=== PATIENT | male | born 1980 | race Caucasian/White ===

== ENCOUNTER 2017-02-07 21:27 | Emergency (ER) | payer SELFPAY ==
[~2017-02-07] VITALS: Ht 180.3 cm; Wt 65.9 kg
[2017-02-07 21:40] VITALS: BP 90/66; PULSE 80; RESP 20; TEMP 98.5; O2SAT 98
[2017-02-07] MEDS ORDERED: BACT800T5 PO ×2 (22:27→22:46)
--- NOTE | 2017-02-07 22:27 | PD ---
HPI Chief Complaint: Skin Problem Time Seen by Provider: 22:00 Travel History International Travel<30 days: No Contact w/Intl Traveler<30days: No Traveled to known affect area: No History of Present Illness HPI 36-year-old male presents emergency department for evaluation of a painful lump on his back 3 days. He denies fever or chills. He reports pain is localized to the site of the lump. Nonradiating. No aggravating or alleviating factors. Patient denies history of previous abscesses. PFSH Past Medical History Medical History: Denies Significant Hx Diminished Hearing: No Immunizations Current: Yes Tetanus Vaccination: Unknown Influenza Vaccination: No Social History Alcohol Use: Yes (social) Tobacco Use: Yes (1/2 PPD) Substance Use: No Allergies-Medications (Allergen,Severity, Reaction): Coded Allergies: No Known Allergies (Unverified , 02/07/17) Reported Meds & Prescriptions Reported Meds & Active Scripts Active Bactrim DS (Sulfamethoxazole-Trimethoprim) 800-160 Mg Tab 1 Tab PO BID Review of Systems Except as stated in HPI: all other systems reviewed are Neg General / Constitutional: No: Fever Eyes: No: Visual changes Cardiovascular: No: Chest Pain or Discomfort Respiratory: No: Shortness of Breath Gastrointestinal: No: Abdominal Pain Genitourinary: No: Dysuria Musculoskeletal: No: Pain Physical Exam Narrative GENERAL: Well-nourished, well-developed patient. SKIN: Focused skin assessment warm/dry. Patient has a one and half centimeter diameter raised fluctuant abscess to the mid back. There is no surrounding cellulitis. HEAD: Normocephalic. EYES: No scleral icterus. No injection or drainage. NECK: Supple, trachea midline. No JVD or lymphadenopathy. CARDIOVASCULAR: Regular rate and rhythm without murmurs, gallops, or rubs. RESPIRATORY: Breath sounds equal bilaterally. No accessory muscle use. GASTROINTESTINAL: Abdomen soft, non-tender, nondistended. MUSCULOSKELETAL: No cyanosis, or edema. BACK: Nontender without obvious deformity. No CVA tenderness. Data Data Last Documented VS Vital Signs Date Time Temp Pulse Resp B/P Pulse Ox O2 Delivery O2 Flow Rate FiO2 02/07/17 21:40 98.5 80 20 90/66 98 Orders Lidocai-Epi 1%-1:100,000 Inj (Xylocaine- (02/07/17 22:45) Lidocai-Epi 1%-1:100,000 Inj (Xylocaine- (02/07/17 23:00) MDM Medical Decision Making Medical Screen Exam Complete: Yes Emergency Medical Condition: Yes Differential Diagnosis Abscess, sebaceous cyst, cellulitis, inflamed sebaceous cyst Narrative Course 36-year-old male presents emergency department for evaluation of possible abscess on his back 3 days. On exam patient has a 1-1/2 cm raised fluctuant abscess to the mid back. There is no surrounding cellulitis. I&D will be performed and patient will be discharged home on antibiotics. Procedures Procedure Narrative Incision and drainage of abscess performed by medical student with my supervision: The area was prepped with Betadine. Sterile dressings applied. 1-2 cc of 1% lidocaine with epi used to anesthetize the area. #11 blade used to make a small incision. Small amount of purulent drainage expressed. Sterile dressing was applied. Patient tolerated procedure well. Diagnosis Primary Impression: Abscess Referrals: Primary Care Physician Additional Instructions: Take the antibiotics as prescribed. Change the dressing daily. Follow-up the primary care doctor for reevaluation. Return to the emergency department if he developed new or worsening symptoms. Scripts Sulfamethoxazole-Trimethoprim (Bactrim DS)800-160 Mg Tab1 Tab PO BID #20 TAB Prov:Helena Paez 02/07/17 Disposition: 01 DISCHARGE HOME Condition: Stable Helena Paez Feb 07, 2017 22:27
[2017-02-07] MEDS ORDERED: LIDOCAINE 1%/EPINEPHrine 1:100,000 SOLN 20 ML VIAL INFIL ONE (22:45)
[2017-02-07] MEDS ORDERED: LIDOCAINE 1%/EPINEPHrine 1:100,000 SOLN 30 ML VIAL INFIL ONE (23:00)
== END 2017-02-07 22:49 | disposition home or self-care (01) ==
LOC: PHEFT 21:27
DX: L02.212 Cutaneous abscess of back [any part, except buttock and flank] (principal)
CPT/HCPCS: 10060

== ENCOUNTER 2017-11-14 09:23 | Emergency (ER) | payer SELFPAY ==
[~2017-11-14] VITALS: Ht 177.8 cm; Wt 70.0 kg
[~2017-11-14 09:23] MED LIST: BACT800T5 PO; HYDR-3516 PO
[2017-11-14 09:25] VITALS: BP 136/68; PULSE 71; RESP 15; TEMP 98.1; O2SAT 99
[2017-11-14] MEDS ORDERED: SODIUM CHLOR 0.9% 1000 ML INJ 1,000 ML IV ONE (10:15)
--- NOTE | 2017-11-14 10:29 | PD ---
HPI Chief Complaint: Medical Clearance Time Seen by Provider: 09:51 Travel History International Travel<30 days: No Contact w/Intl Traveler<30days: No Traveled to known affect area: No History of Present Illness HPI Patient is a 37 year old male who comes in because his tow motor driver told him to come to the ED. He says he has flashes of black when stands up sometimes. He says this has been going on for years. He says he has been to other hospitals for this and was advised to follow up with cardiology for a manager cardiac cath. He has not done this. He says nothing has changed today vs the last 2 years, he was just told to come by the tow motor driver. He denies chest pain, SOB, abdominal pain, nausea/vomiting. He denies headaches or head injuries. Severity is mild. PFSH Past Medical History Arthritis: No Asthma: No Autoimmune Disease: No Heart Rhythm Problems: No Cancer: No Cardiovascular Problems: No High Cholesterol: No Chest Pain: No Congestive Heart Failure: No COPD: No Cerebrovascular Accident: No Diabetes: No Diminished Hearing: No Endocrine: No GERD: No Genitourinary: No Hiatal Hernia: No Immune Disorder: No Kidney Stones: No Musculoskeletal: No Neurologic: Yes ("FAINTING SPELLS") Psychiatric: No Reproductive: No Immunizations Current: Yes Migraines: No Renal Failure: No Seizures: No Thyroid Disease: No Ulcer: No Past Surgical History Abdominal Surgery: No Cardiac Surgery: No Endocrine Surgery: No Genitourinary Surgery: No Gynecologic Surgery: No Thoracic Surgery: No Other Surgery: Yes Social History Alcohol Use: Yes (social) Tobacco Use: Yes (/2 PPD) Substance Use: Yes ([facility]) Allergies-Medications (Allergen,Severity, Reaction): Coded Allergies: No Known Allergies (Unverified Adverse Reaction, Unknown, 11/14/17) Reported Meds & Prescriptions Reported Meds & Active Scripts Active No Active Prescriptions or Reported Medications Review of Systems General / Constitutional: No: Fever, Chills HENT: No: Headaches, Lightheadedness Cardiovascular: No: Chest Pain or Discomfort Respiratory: No: Shortness of Breath Gastrointestinal: No: Nausea, Vomiting Musculoskeletal: No: Myalgias Skin: No Rash, No Change in Pigmentation Neurologic: No: Weakness Physical Exam Narrative GENERAL: Awake and alert, in no acute distress. SKIN: Focused skin assessment warm/dry. No wounds or signs of infection. HEAD: Atraumatic. Normocephalic. EYES: Pupils equal and round. No scleral icterus. EOMI. ENT: Mucous membranes pink and moist. CARDIOVASCULAR: Regular rate and rhythm. No murmur appreciated. RESPIRATORY: No accessory muscle use. Clear to auscultation. Breath sounds equal bilaterally. MUSCULOSKELETAL: No obvious deformities. No clubbing. No cyanosis. No edema. NEUROLOGICAL: Awake and alert. No obvious cranial nerve deficits. Motor grossly within normal limits. Normal speech. PSYCHIATRIC: Appropriate mood and affect; insight and judgment normal. Data Data Last Documented VS Vital Signs Date Time Temp Pulse Resp B/P (MAP) Pulse Ox O2 Delivery O2 Flow Rate FiO2 11/14/17 09:25 98.1 71 15 136/68 (90) 99 Orders Orders Iv Access Insert/Monitor (11/14/17 10:02) Complete Blood Count With Diff (11/14/17 10:02) Comprehensive Metabolic Panel (11/14/17 10:02) Troponin I (11/14/17 10:02) Electrocardiogram (11/14/17 ) Sodium Chlor 0.9% 1000 Ml Inj (Ns 1000 M (11/14/17 10:15) MDM Medical Decision Making Medical Screen Exam Complete: Yes Emergency Medical Condition: Yes Differential Diagnosis dehydration vs electrolyte abnormalities vs dysrhythmia Narrative Course Patient is a 37 year old male who comes in at the bequest of his tow motor driver. He has had symptoms of almost passing out when he stands for 2 years. Nothing is different today. Patient offered testing and possible treatment, however he decided to leave before anything could be done. AMA: The risks of leaving against medical advice without further evaluation treatment were discussed with the patient. These risks include cardiac dysfunction, cardiac dysrhythmia, possible heart attack, possible stroke or . The patient indicated understanding of these risks and appeared to have the capacity to make this decision. Diagnosis Primary Impression: Near syncope Scripts No Active Prescriptions or Reported Meds Disposition: 07 AGAINST MEDICAL ADVICE Condition: Stable Anastasiia Jones MD Nov 14, 2017 10:29
== END 2017-11-14 11:01 | disposition left against medical advice (07) ==
LOC: NEPD 09:23
DX: R55 Syncope and collapse (principal); F17.210 Nicotine dependence, cigarettes, uncomplicated; F12.90 Cannabis use, unspecified, uncomplicated
CPT/HCPCS: 99281